=== PATIENT | female | born 1990 | race American Indian/Alaskan Native ===

== ENCOUNTER 2018-02-03 12:25 | Outpatient (CLI) | payer OTHER ==
[2018-02-03] MEDS ORDERED: PRENATAL 19 TA1 EACH PO (15:13)
== END 2018-02-03 22:06 | disposition home or self-care (01) ==
LOC: OBS/DEL 12:25
DX: O60.03 Preterm labor without delivery, third trimester (principal); Z34.83 Encounter for supervision of other normal pregnancy, third trimester

== ENCOUNTER 2018-02-25 21:51 | Outpatient (CLI) | payer OTHER ==
[~2018-02-25 21:51] MED LIST: PRENATAL 19 TA1 EACH PO
== END 2018-02-26 18:48 | disposition home or self-care (01) ==
LOC: OBS/DEL 21:51
DX: O47.1 False labor at or after 37 completed weeks of gestation (principal); O76 Abnormality in fetal heart rate and rhythm complicating labor and delivery

== ENCOUNTER 2018-03-10 00:47 | Inpatient (IN) | payer OTHER ==
[~2018-03-10] VITALS: Ht 165.1 cm; Wt 83.0 kg
== END 2018-03-13 16:09 | DRG 766 ==
LOC: OBS/DEL 00:47 → OB/GYN 11:39 → LDR 11:39 → OB/GYN 22:03
PROVIDERS: Obstetrics & Gynecology
PROC: 3E0P7VZ Introduction of Hormone into Female Reproductive, Via Natural or Artificial Opening (ICD-10-PCS; 2018-03-10)
PROC: 3E033VJ Introduction of Other Hormone into Peripheral Vein, Percutaneous Approach (ICD-10-PCS; 2018-03-10)
PROC: 4A1HXCZ Monitoring of Products of Conception, Cardiac Rate, External Approach (ICD-10-PCS; 2018-03-10)
PROC: 10D00Z1 Extraction of Products of Conception, Low, Open Approach (ICD-10-PCS; principal; 2018-03-10 19:00)
DX: O33.9 Maternal care for disproportion, unspecified (principal); Z3A.39 39 weeks gestation of pregnancy; Z37.0 Single live birth